=== PATIENT | male | born 2000 | race Asian ===

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

== ENCOUNTER 2020-01-11 10:53 | Emergency (ER) | payer OTHER ==
[~2020-01-11] VITALS: Ht 162.6 cm; Wt 49.4 kg
[2020-01-11 11:04] VITALS: Ht 162.6 cm; Wt 49.4 kg
[2020-01-11 12:15] VITALS: BP 100/61
== END 2020-01-11 13:01 | disposition home or self-care (01) ==
LOC: ED 10:53
DX: J40 Bronchitis, not specified as acute or chronic (principal)
CPT/HCPCS: Q0092

== ENCOUNTER 2020-01-23 08:55 | Emergency (ER) | payer OTHER ==
[~2020-01-23] VITALS: Ht 165.1 cm; Wt 49.9 kg
[2020-01-23 09:13] VITALS: Ht 165.1 cm; Wt 49.9 kg
[2020-01-23 09:32] VITALS: BP 109/64
== END 2020-01-23 09:32 | disposition home or self-care (01) ==
LOC: ED 08:55
DX: J06.9 Acute upper respiratory infection, unspecified (principal); Z20.828 Contact with and (suspected) exposure to other viral communicable diseases